=== PATIENT | male | born 1980 | race Caucasian/White ===

== ENCOUNTER 2024-12-08 19:16 | Emergency (ER) | payer MEDICAID ==
[~2024-12-08] VITALS: Ht 167.6 cm; Wt 59.1 kg
[2024-12-08 19:36] VITALS: BP 114/76; PULSE 86; RESP 16; O2SAT 99
--- NOTE | 2024-12-08 20:04 | RADIOLOGY REPORT ---
CLINICAL INDICATION: FOOT PAIN TECHNIQUE: DI FOOT, COMPLETE (3VW MIN) Comparison: None FINDINGS: No osseous or joint abnormality identified with no fracture or dislocation. Joint spaces are normal. IMPRESSION: No abnormality demonstrated.
--- NOTE | 2024-12-08 20:08 | RADIOLOGY REPORT ---
CLINICAL INDICATION: ANKLE PAIN TECHNIQUE: DI ANKLE, COMPLETE(3VW MIN) Comparison: None FINDINGS/IMPRESSION: : There is no evidence of acute fracture or dislocation. Soft tissues are unremarkable.
--- NOTE | 2024-12-08 20:59 | Physician Documentation ---
History of Present Illness General Chief Complaint: Foot pain Stated Complaint: FOOT PAIN Time Seen by MD: 19:42 History of Present Illness Initial Comments 44-year-old male otherwise healthy who was kick boxing and striking the bag with a his right forefoot a week and a half ago continues to have pain when he ambulates to the Sheri area of the ankle into the plantar surface of the foot. No obvious deformity gross neurologic intact no prior history of the same. Medication Reconciliation Allergies: Coded Allergies: No Known Allergies (Unverified , 12/08/24) Scheduled Ibuprofen* (Motrin*), 400 MG PO Q6H Review of Systems All Other Systems at this time: Reviewed and Negative Constitutional: Denies: fever Musc: Reports: joint pain Physical Exam Physical Exam Vital Signs: RN Vital Signs have been reviewed: Yes, Temperature: 99.0, Heart Rate: 86, Respiratory Rate: 16, BP: 114/76, Pulse Oximetry: 99, Weight: 59.090 Oxygen Flow Rate: 0 General Appearance: alert, WD/WN Head: normal inspection Face: normal inspection Pupils/EOM/Fundus: PERRLA Respiratory: lungs clear Chest: no accessory muscle use Extremities: other (Mild pain with passive and active range of motion) Neurologic: oriented x4 Motor / Sensory: no motor deficit, no sensory deficit Psychiatric: normal mood/affect Skin: normal color Progress Results/Orders Results/Orders Vital Signs 12/08/24 12/08/24 19:36 21:13 Temp 99.0 99.0 Pulse 86 Resp 16 B/P (MAP) 114/76 Pulse Ox 99 O2 Flow Rate 0 Medical Decision Making Differential Diagnosis X-ray imaging and reassuring for no obvious fracture dislocation of the ankle or in her foot. Patient to continue to wear his broke the brace has been provided a Cam walker boot for further conference support to be used with a scooter. Recommendations follow up with the primary care physician in 1-2 weeks if not been it for consideration of CT imaging for ruling out stress fracture. Discharged to begin ibuprofen as directed be nonweightbearing. Patient is safe for stable discharge Departure Disposition: HOME / SELF CARE / HOMELESS Impression: Primary Impression: Sprain of foot Qualified Codes: S93.601A - Unspecified sprain of right foot, initial encounter Condition: Stable Discharge Instructions: Sprains Additional Instructions: Sending the emergency department he had x-rays obtained that are reassuring for no obvious fracture dislocation. He has been provided a Cam walker boot to use as needed intermittently. Please do not drive with the boot tried to be nonweightbearing as much as possible. They follow up appointment with primary care physician for consideration at orthopedic follow up if symptoms not resolve in 7-10 days. Thank you for visiting the emergency department at [facility] Referrals: NO PRIMARY CARE PROVIDER (PCP) Prescriptions Ibuprofen* (Motrin*) 400 Mg Tablet 400 MG PO Q6H for 10 Days, #30 TAB Prov: OLIVA LOVE 12/08/24 Education Educated: Patient Educated regarding: diagnosis Signature Scribe Signature: . Attestation: . OLIVA LOVE PAC Dec 08, 2024 20:59
[2024-12-08] MEDS ORDERED: IBUP-1984 PO (21:01)
[2024-12-08 21:13] VITALS: TEMP 99
== END 2024-12-08 21:14 | disposition home or self-care (01) ==
LOC: ER 19:17
DX: S93.601A Unspecified sprain of right foot, initial encounter (principal); X58.XXXA Exposure to other specified factors, initial encounter; Y93.89 Activity, other specified; Y92.89 Other specified places as the place of occurrence of the external cause; Y99.8 Other external cause status
CPT/HCPCS: 73610; 73630; 99284; L4360